=== PATIENT | male | born 1955 | race Caucasian/White ===

== ENCOUNTER 2021-10-30 10:00 | Outpatient (CLI) | payer OTHER | END 2021-11-03 14:27 | disposition home or self-care (01) | LOC: SLB 10:00 → EDSTATUS 11-02 12:30 → SLB 11-03 14:27 | PROVIDERS: ATTEND Surgery | DX: Z01.812 Encounter for preprocedural laboratory examination (principal); Z20.822 Contact with and (suspected) exposure to COVID-19; K40.20 Bilateral inguinal hernia, without obstruction or gangrene, not specified as recurrent | CPT/HCPCS: 36415; 87635; U0003 ==